=== PATIENT | female | born 1985 | race African-American/Black ===

== ENCOUNTER 2020-06-19 15:57 | Inpatient (IN) | payer OTHER ==
[2020-06-19] MEDS ORDERED: Ondansetron PF 4 MG/2 ML Vial ONE (17:12)
[2020-06-19 17:38] LABS: #Eosinphils 0.1 10x3/uL (0.0-0.5); #Monocytes 0.4 10x3/uL (0.0-1.1); %Basophils 0.5 % (0.0-2.0); %Eosinophils 1.5 % (0.0-6.0); %Lymphocytes 37.4 % (18.0-47.0); %Monocytes 10.6 % (0.0-10.0); Hemoglobin 13.2 g/dL (12.0-15.5); Mean Corpuscular HGB CONC 32.8 g/dL (32.0-36.0); Mean Corpuscular Hemoglobin 32.6 pg (27.0-33.0); Mean Corpuscular Volume 99.3 fl (81.6-98.3); Mean Platelet Volume 10.5 fl (7.4-10.4); Platelet Count 288 10x3/uL (150-450); RBC Distribution Width 11.9 % (11.5-14.5); Red Blood Cell (RBC) Count 4.05 10x6/uL (3.90-5.03)
[2020-06-19 17:50] LABS: #Neutrophils 8.3 10x3/uL (1.5-8.4)
[2020-06-19 17:51] LABS: BHCG - Serum Negative (NEGATIVE); Pregs Control Background? CLEAR/WHITE (CLR/WHITE); Pregs Control Bar Appear? YES (CONTROL BAR)
[2020-06-19 17:58] LABS: ALT (SGPT) 412 U/L (8-55); AST (SGOT) 365 U/L (5-34); Albumin 4.7 g/dL (3.5-5.0); Alkaline Phosphatase 188 U/L (40-110); Anion Gap 14 mmol/L (10-20); BUN (Urea Nitrogen) 11 mg/dL (7.0-18.7); Bilirubin, Total 1.1 mg/dL (0.2-1.2); Calc. Creatinine Clearance 0 mL/min (70-130); Calcium 9.6 mg/dL (7.8-10.44); Carbon Dioxide 25 mmol/L (22-29); Chloride 105 mmol/L (98-107); Globulin 3.3 g/dL (2.4-3.5); Glucose 96 mg/dL (70-105); Lipase 59 U/L (8-78); Potassium 3.7 mmol/L (3.5-5.1); Sodium 140 mmol/L (136-145)
[2020-06-19] MEDS ORDERED: cefTRIAXone\\ROCEPHIN 1 GM VIAL ONE (19:21)
[2020-06-19 19:27] LABS: Bilirubin Neg (Negative); Blood, Urine Negative (Negative); Glucose, Urine (Dipstick) Normal (Negative); Ketone, Urine Negative (Negative); Leukocyte 25 (Negative); Nitrite Negative (Negative); Protein, Urine (Dipstick) Negative (Neg-Trace); Specific Gravity, Urine 1.005 (1.002-1.036)
[2020-06-19 19:34] LABS: Clarity Hazy (Clear)
[2020-06-19 19:36] LABS: RBC/HPF 0-3 HPF (0-3)
[2020-06-19 19:37] LABS: Mucous/LPF 1+ LPF (<2+)
[2020-06-19 19:40] LABS: Bacteria/HPF 1+ HPF (None Seen)
[2020-06-19] MEDS ORDERED: Morphine 4 MG/ML VIAL ONE (19:51)
[2020-06-19] MEDS ORDERED: HYDROcodone/Acetaminophen 5/325 mg Tablet PO PRN (20:29)
[2020-06-19] MEDS ORDERED: Senokot S 8.6-50 MG TAB PO PRN (20:29)
[2020-06-19] MEDS ORDERED: Zolpidem Tartrate 5 MG TAB PO PRN (20:29)
[2020-06-19] MEDS ORDERED: Ondansetron PF 4 MG/2 ML Vial IVP PRN (20:29)
[2020-06-19] MEDS ORDERED: Calcium Carbonate 500 MG ChewTAB PO PRN (20:29)
[2020-06-19] MEDS ORDERED: Acetaminophen 325 MG TAB PO PRN (20:29)
[2020-06-19] MEDS ORDERED: Morphine 4 MG/ML VIAL SLOW IVP PRN (20:31)
[2020-06-19 22:41] VITALS: BMI 33.8
[2020-06-19] MEDS ORDERED: Famotidine/PF 20 mg/2ml Vial SLOW IVP SCH (22:45)
[2020-06-19] MEDS ORDERED: NS 0.9% w/ 20 MEQ KCL 1,000 ML ONE (22:49)
[2020-06-19] MEDS: NS 0.9% w/ 20 MEQ KCL 1,000 ML/1,000 ML BAG IV SCH (22:53)
[2020-06-20 05:45] LABS: ALT (SGPT) 368 U/L (8-55); AST (SGOT) 244 U/L (5-34); Alkaline Phosphatase 188 U/L (40-110); Anion Gap 11 mmol/L (10-20); BUN (Urea Nitrogen) 9 mg/dL (7.0-18.7); Bilirubin, Total 1.1 mg/dL (0.2-1.2); Calc. Creatinine Clearance 150 mL/min (70-130); Calcium 8.6 mg/dL (7.8-10.44); Carbon Dioxide 22 mmol/L (22-29); Cardiac Risk 2.9 (Less than 4.5); Chloride 109 mmol/L (98-107); Cholesterol 165 mg/dl (< 200 Desired); Globulin 2.6 g/dL (2.4-3.5); Glucose 100 mg/dL (70-105); HDL Cholesterol 57 mg/dL (>60 Neg Risk); LDL Cholesterol, Calculated 99 mg/dL; Potassium 4.3 mmol/L (3.5-5.1); Protein, Total 6.6 g/dL (6.0-8.3); Sodium 138 mmol/L (136-145); Triglycerides 47 mg/dL (Less than 150)
[2020-06-20 05:51] LABS: #Eosinphils 0.2 10x3/uL (0.0-0.5); #Monocytes 0.3 10x3/uL (0.0-1.1); #Neutrophils 1.8 10x3/uL (1.5-8.4); %Basophils 0.3 % (0.0-2.0); %Eosinophils 4.1 % (0.0-6.0); %Lymphocytes 40.4 % (18.0-47.0); %Monocytes 8.3 % (0.0-10.0); %Neutrophils 46.6 % (40.0-75.0); Hemoglobin 11.6 g/dL (12.0-15.5); Mean Corpuscular HGB CONC 32.7 g/dL (32.0-36.0); Mean Corpuscular Hemoglobin 32.5 pg (27.0-33.0); Mean Corpuscular Volume 99.4 fl (81.6-98.3); Mean Platelet Volume 11.1 fl (7.4-10.4); Platelet Count 262 10x3/uL (150-450); RBC Distribution Width 12.1 % (11.5-14.5); Red Blood Cell (RBC) Count 3.57 10x6/uL (3.90-5.03); White Blood Cell (WBC) Count 3.9 10x3/uL (3.5-10.5)
[2020-06-20 09:32] LABS: Vitamin B12 698 pg/mL (211-911)
[2020-06-20 09:39] LABS: HBCM Index 0.23 S/CO (0-0.79); HBSAg Index 0.19 S/CO (0-0.99); Hep A IgM AB Non-Reactive (NonReactive); Hep A IgM S/CO 0.15 S/CO (0-0.79); Hep B Surf Ag Non-Reactive S/CO (NonReactive); Hep C IgG Ab Non-Reactive (NonReactive); Hep C Index 0.08 S/CO (0-0.79); Hepatitis B Core IgM Abs Non-Reactive (NonReactive)
[2020-06-20] MEDS: cefTRIAXone\\ROCEPHIN 2 GM in Sodium Chloride 0.9% 100 ML IVPB SCH (11:14)
[2020-06-20] MEDS: Enoxaparin Sodium 40 MG/0.4 ML SYRINGE SC SCH (11:14)
[2020-06-20] MEDS: Famotidine/PF 20 mg/2ml Vial SLOW IVP SCH ×2 (11:15→21:56)
[2020-06-20 16:18] LABS: SARS-CoV-2 PCR by NAA Not Detected (NotDetected)
[2020-06-21] MEDS: NS 0.9% w/ 20 MEQ KCL 1,000 ML/1,000 ML BAG IV SCH (01:05)
[2020-06-21 04:26] LABS: #Eosinphils 0.2 10x3/uL (0.0-0.5); #Monocytes 0.3 10x3/uL (0.0-1.1); #Neutrophils 1.2 10x3/uL (1.5-8.4); %Basophils 0.6 % (0.0-2.0); %Eosinophils 4.2 % (0.0-6.0); %Lymphocytes 52.7 % (18.0-47.0); %Neutrophils 33.5 % (40.0-75.0); Hemoglobin 11.8 g/dL (12.0-15.5); Mean Corpuscular HGB CONC 31.8 g/dL (32.0-36.0); Mean Corpuscular Hemoglobin 31.7 pg (27.0-33.0); Mean Corpuscular Volume 99.7 fl (81.6-98.3); Mean Platelet Volume 11.3 fl (7.4-10.4); Platelet Count 246 10x3/uL (150-450); RBC Distribution Width 11.9 % (11.5-14.5); Red Blood Cell (RBC) Count 3.72 10x6/uL (3.90-5.03); White Blood Cell (WBC) Count 3.6 10x3/uL (3.5-10.5)
[2020-06-21 04:42] LABS: ALT (SGPT) 270 U/L (8-55); AST (SGOT) 103 U/L (5-34); Albumin 3.9 g/dL (3.5-5.0); Alkaline Phosphatase 181 U/L (40-110); Anion Gap 13 mmol/L (10-20); BUN (Urea Nitrogen) 6 mg/dL (7.0-18.7); Bilirubin, Total 0.8 mg/dL (0.2-1.2); Calc. Creatinine Clearance 142 mL/min (70-130); Carbon Dioxide 21 mmol/L (22-29); Chloride 107 mmol/L (98-107); Globulin 2.7 g/dL (2.4-3.5); Glucose 87 mg/dL (70-105); Potassium 4.3 mmol/L (3.5-5.1); Protein, Total 6.6 g/dL (6.0-8.3); Sodium 137 mmol/L (136-145)
[2020-06-21] MEDS: cefTRIAXone\\ROCEPHIN 2 GM in Sodium Chloride 0.9% 100 ML IVPB SCH (08:51)
[2020-06-21] MEDS: Famotidine/PF 20 mg/2ml Vial SLOW IVP SCH (08:52)
[2020-06-21] MEDS ORDERED: Fentanyl 250 MCG/5 ML VIAL ONE (11:46)
[2020-06-21] MEDS ORDERED: Ondansetron PF 4 MG/2 ML Vial ONE (11:46)
[2020-06-21] MEDS ORDERED: Midazolam HCl 2 mg/2 ml Vial ONE (11:46)
[2020-06-21] MEDS ORDERED: Rocuronium Bromide 10 MG/ML (10ML VIAL) ONE (11:46)
[2020-06-21] MEDS ORDERED: Dexamethasone 20 MG/5 ML VIAL ONE (11:46)
[2020-06-21] MEDS ORDERED: PROPOFOL 20 ML ONE (11:46)
[2020-06-21] MEDS ORDERED: Glycopyrrolate 0.2 MG/ML 5 ML SYRINGE ONE (11:46)
[2020-06-21] MEDS ORDERED: Lidocaine 1% PF 5 ML VIAL ONE (11:46)
[2020-06-21] MEDS ORDERED: EPINEPHrine 1 MG/ML AMP ONE (12:06)
[2020-06-21] MEDS ORDERED: Bupivacaine PF 0.5% 30 ML VIAL ONE (12:06)
[2020-06-21] MEDS ORDERED: Ibuprofen 600 MG TAB PO PRN (12:22)
[2020-06-21] MEDS ORDERED: Acetaminophen 500 MG TAB PO PRN (12:22)
[2020-06-21] MEDS ORDERED: traMADol HCl 50 MG TAB PO PRN (12:22)
[2020-06-21] MEDS ORDERED: Ketorolac Tromethamine 30 MG/ML VIAL ONE (12:47)
[2020-06-21] MEDS: Enoxaparin Sodium 40 MG/0.4 ML SYRINGE SC SCH (13:32)
[2020-06-21 16:58] VITALS: BP 115/76
[2020-06-21 17:02] VITALS: TEMP 98.6
== END 2020-06-21 17:59 | disposition home or self-care (01) | DRG 419 ==
LOC: CSHERS 15:57 → CSHTELE 21:28
PROVIDERS: ADMIT Student in an Organized Health Care Education/Training Program; ATTEND Family Medicine
PROC: 0FT44ZZ Resection of Gallbladder, Percutaneous Endoscopic Approach (ICD-10-PCS; principal; 2020-06-21)
DX: K80.10 Calculus of gallbladder with chronic cholecystitis without obstruction (principal); Z20.822 Contact with and (suspected) exposure to COVID-19; Z82.49 Family history of ischemic heart disease and other diseases of the circulatory system; E66.9 Obesity, unspecified; Z68.33 Body mass index [BMI] 33.0-33.9, adult; D53.9 Nutritional anemia, unspecified
CPT/HCPCS: 36415; 74177; 74181; 76705; 80053; 80061; 80074; 81003; 81015; 82607; 82746; 83690; 84703; 85025; 87635; 88304; 96365; 96375; J0171; J0696; J1100; J1650; J1885; J2250; J2270; J2405; J2704; J3010; J3480; J3490; S0020; S0028; U0003; U0005

== ENCOUNTER 2021-02-07 11:29 | Day surgery (SDC) | payer OTHER ==
[2021-02-07 12:19] VITALS: BMI 32.9
== END 2021-02-07 13:55 | disposition home health service (06) ==
LOC: CSHLD/OP 11:29
PROVIDERS: ATTEND Obstetrics & Gynecology
DX: Z04.3 Encounter for examination and observation following other accident (principal); O99.820 Streptococcus B carrier state complicating pregnancy; O24.415 Gestational diabetes mellitus in pregnancy, controlled by oral hypoglycemic drugs; O98.313 Other infections with a predominantly sexual mode of transmission complicating pregnancy, third trimester; A60.00 Herpesviral infection of urogenital system, unspecified; O09.523 Supervision of elderly multigravida, third trimester; Z3A.36 36 weeks gestation of pregnancy; Z79.82 Long term (current) use of aspirin; Z79.899 Other long term (current) drug therapy; W18.39XA Other fall on same level, initial encounter
CPT/HCPCS: 99282

== ENCOUNTER 2021-02-16 19:50 | Inpatient (IN) | payer OTHER ==
[2021-02-16] MEDS ORDERED: Ondansetron PF 4 MG/2 ML Vial IVP PRN ×2 (20:21→20:24)
[2021-02-16] MEDS ORDERED: Carboprost 250 MCG/ML AMP IM PRN (20:21)
[2021-02-16] MEDS ORDERED: Lidocaine 1% (PF) 30 ML VIAL SC PRN (20:21)
[2021-02-16] MEDS ORDERED: Methylergonovine 0.2 MG/ML VIAL IM PRN (20:21)
[2021-02-16] MEDS ORDERED: Promethazine HCl 25 MG/ML VIAL IM PRN ×2 (20:21→20:24)
[2021-02-16] MEDS ORDERED: Diphenoxylate HCl/Atropine Tablet PO PRN (20:21)
[2021-02-16] MEDS ORDERED: Ibuprofen 800 MG TAB PO PRN (20:21)
[2021-02-16] MEDS ORDERED: Misoprostol 200 MCG TAB PR PRN (20:21)
[2021-02-16] MEDS ORDERED: hydrALAZINE 20 MG/ML VIAL SLOW IVP PRN ×2 (20:21→20:24)
[2021-02-16] MEDS ORDERED: Milk Of Magnesia 30 ML UDCUP PO PRN (20:24)
[2021-02-16] MEDS ORDERED: Bisacodyl 10 MG SUPP PR PRN (20:24)
[2021-02-16] MEDS ORDERED: Boostrix 0.5 ML (Tdap) VIAL IM ONE (20:24)
[2021-02-16] MEDS ORDERED: diphenhydrAMINE 25 MG CAP PO PRN (20:24)
[2021-02-16] MEDS ORDERED: Lanolin Ointment 7 GM TUBE TOP PRN (20:24)
[2021-02-16] MEDS ORDERED: Preparation H Ointment 28 GM TUBE PR PRN (20:24)
[2021-02-16] MEDS ORDERED: NS w/ Oxytocin 30 units 500 ML IV SCH (20:30)
[2021-02-16 20:51] VITALS: BMI 33.5
[2021-02-16] MEDS ORDERED: metFORMIN 500 MG TAB PO SCH (21:00)
[2021-02-16] MEDS ORDERED: Oxytocin 10 UNITS/ML VIAL ONE (21:09)
[2021-02-16 21:34] LABS: Hemoglobin 12.3 g/dL (12.0-15.5); Mean Corpuscular HGB CONC 33.9 g/dL (32.0-36.0); Mean Corpuscular Hemoglobin 33.4 pg (27.0-33.0); Mean Corpuscular Volume 98.6 fl (81.6-98.3); Mean Platelet Volume 11.5 fl (7.4-10.4); Platelet Count 254 10x3/uL (150-450); RBC Distribution Width 12.6 % (11.5-14.5); Red Blood Cell (RBC) Count 3.68 10x6/uL (3.90-5.03); White Blood Cell (WBC) Count 10.8 10x3/uL (3.5-10.5)
[2021-02-16 21:52] LABS: ALT (SGPT) 34 U/L (8-55); AST (SGOT) 29 U/L (5-34); Albumin 3.7 g/dL (3.5-5.0); Alkaline Phosphatase 307 U/L (40-110); Anion Gap 16 mmol/L (10-20); BUN (Urea Nitrogen) 8 mg/dL (7.0-18.7); Bilirubin, Total 0.8 mg/dL (0.2-1.2); Calc. Creatinine Clearance 149 mL/min (70-130); Calcium 9.6 mg/dL (7.8-10.44); Carbon Dioxide 19 mmol/L (22-29); Chloride 103 mmol/L (98-107); Globulin 3.9 g/dL (2.4-3.5); Glucose 97 mg/dL (70-105); Protein, Total 7.6 g/dL (6.0-8.3); Sodium 134 mmol/L (136-145)
[2021-02-16 22:11] LABS: Hep B Surf Ag Non-Reactive S/CO (NonReactive)
[2021-02-16 22:12] LABS: Syphilis Antibody Nonreactive (Nonreactive); Syphilis Antibody Index 0.03 S/CO (<1.00 Non-Reactive)
[2021-02-17 02:14] LABS: SARS-CoV-2 NAA Rapid Test Not Detected (NotDetected)
[2021-02-17] MEDS: Acetaminophen 500 MG TAB PO PRN ×3 (04:40→22:23)
[2021-02-17] MEDS ORDERED: metFORMIN 500 MG TAB PO SCH (08:00)
[2021-02-17] MEDS: Lactated Ringer's 1,000 ML IV SCH ×4 (08:14→21:03)
[2021-02-17] MEDS: Ferrous Sulfate 325 MG TAB PO SCH ×2 (08:15→12:08)
[2021-02-17] MEDS: Docusate Calcium (SURFAK) 240 MG CAP PO SCH ×3 (08:28→22:23)
[2021-02-17] MEDS: Prenatal Vitamin 1 TAB PO SCH (08:28)
[2021-02-17] MEDS: metFORMIN 850 MG TAB PO SCH ×2 (12:06→16:46)
[2021-02-18] MEDS: Lactated Ringer's 1,000 ML IV SCH ×2 (00:58→12:05)
[2021-02-18] MEDS: Prenatal Vitamin 1 TAB PO SCH (08:38)
[2021-02-18] MEDS: Docusate Calcium (SURFAK) 240 MG CAP PO SCH (08:38)
[2021-02-18] MEDS: metFORMIN 850 MG TAB PO SCH ×2 (08:39→12:11)
[2021-02-18] MEDS: Ferrous Sulfate 325 MG TAB PO SCH (08:39)
[2021-02-18 09:10] VITALS: BP 116/71; TEMP 98.2
== END 2021-02-18 17:45 | disposition home or self-care (01) | DRG 806 ==
LOC: CSHLD/OP 19:50 → CSHLD 20:00 → CSHPP 02-17 00:23
PROVIDERS: ADMIT Emergency Medicine; ATTEND Emergency Medicine
PROC: 10E0XZZ Delivery of Products of Conception, External Approach (ICD-10-PCS; principal; 2021-02-16)
DX: O24.92 Unspecified diabetes mellitus in childbirth (principal); O98.82 Other maternal infectious and parasitic diseases complicating childbirth; Z20.822 Contact with and (suspected) exposure to COVID-19; Z37.0 Single live birth; O98.22 Gonorrhea complicating childbirth; A54.9 Gonococcal infection, unspecified; O14.94 Unspecified pre-eclampsia, complicating childbirth; Z3A.37 37 weeks gestation of pregnancy; B95.1 Streptococcus, group B, as the cause of diseases classified elsewhere; O70.1 Second degree perineal laceration during delivery
CPT/HCPCS: 36415; 80053; 82570; 84156; 85027; 86780; 86850; 86900; 86901; 87340; 99285; J2590; U0002

== ENCOUNTER 2024-03-14 20:13 | Day surgery (SDC) | payer OTHER ==
[2024-03-14] MEDS ORDERED: hydrALAZINE 20 MG/ML VIAL SLOW IVP PRN (20:24)
[2024-03-14 20:46] VITALS: BMI 36.9
[2024-03-14 21:48] LABS: Creatinine, Urine 59.85 mg/dL (47-110)
[2024-03-14 22:31] LABS: ALT (SGPT) 24 U/L (8-55); AST (SGOT) 26 U/L (5-34); Albumin 2.5 g/dL (3.5-5.0); Alkaline Phosphatase 329 U/L (40-110); Anion Gap 11 mmol/L (10-20); BUN (Urea Nitrogen) 6 mg/dL (7.0-18.7); Bilirubin, Total 0.5 mg/dL (0.2-1.2); Calc. Creatinine Clearance 160 mL/min (70-130); Carbon Dioxide 22 mmol/L (22-29); Chloride 109 mmol/L (98-107); Estimated GFR 114; Globulin 3.8 g/dL (2.4-3.5); Glucose 77 mg/dL (70-105); Potassium 3.7 mmol/L (3.5-5.1); Protein, Total 6.3 g/dL (6.0-8.3); Sodium 138 mmol/L (136-145)
[2024-03-14 22:39] LABS: #Basophils Less than 0.03 10x3/uL (0.0-0.2); #Eosinophils Less than 0.03 10x3/uL (0.0-0.5); #Monocytes 0.54 10x3/uL (0.0-1.1); %Basophils 0.4 % (0.0-2.0); %Eosinophils 0.4 % (0.0-6.0); %Lymphocytes 25.2 % (18.0-47.0); %Monocytes 10.2 % (0.0-10.0); %Neutrophils 62.1 % (40.0-75.0); Hematocrit 29.3 % (34.9-44.5); Hemoglobin 9.3 g/dL (12.0-15.5); Mean Corpuscular HGB CONC 31.7 g/dL (32.0-36.0); Mean Corpuscular Hemoglobin 30.9 pg (27.0-33.0); Mean Corpuscular Volume 97.3 fL (81.6-98.3); Mean Platelet Volume 11.9 fL (7.4-10.4); Platelet Count 261 10x3/uL (150-450); RBC Distribution Width 13.2 % (11.5-14.5); Red Blood Cell (RBC) Count 3.01 10x6/uL (3.90-5.03); White Blood Cell (WBC) Count 5.31 10x3/uL (3.5-10.5)
[2024-03-18 14:12] LABS: Group B Streptococcus by PCR Not Detected (NotDetected)
== END 2024-03-15 01:30 | disposition home or self-care (01) ==
LOC: CSHLD/OP 20:13
PROVIDERS: ATTEND Family Medicine
DX: O12.03 Gestational edema, third trimester (principal); O09.43 Supervision of pregnancy with grand multiparity, third trimester; O09.523 Supervision of elderly multigravida, third trimester; O24.419 Gestational diabetes mellitus in pregnancy, unspecified control; O99.213 Obesity complicating pregnancy, third trimester; E66.812 Obesity, class 2; O40.3XX2 Polyhydramnios, third trimester, fetus 2; O30.043 Twin pregnancy, dichorionic/diamniotic, third trimester; O13.3 Gestational [pregnancy-induced] hypertension without significant proteinuria, third trimester; O26.43 Herpes gestationis, third trimester; O99.013 Anemia complicating pregnancy, third trimester; D50.9 Iron deficiency anemia, unspecified; Z3A.38 38 weeks gestation of pregnancy; Z90.49 Acquired absence of other specified parts of digestive tract
CPT/HCPCS: 36415; 80053; 82570; 84156; 85025; 87653; 99285

== ENCOUNTER 2024-03-19 18:06 | Inpatient (IN) | payer OTHER ==
[2024-03-19 18:47] VITALS: BMI 38.7
[2024-03-19] MEDS: Acetaminophen 500 MG TAB PO SCH (19:21)
[2024-03-19] MEDS: Acetaminophen 500 MG TAB ONE (19:25)
[2024-03-19 20:00] LABS: #Basophils Less than 0.03 10x3/uL (0.0-0.2); #Eosinophils Less than 0.03 10x3/uL (0.0-0.5); #Monocytes 0.45 10x3/uL (0.0-1.1); #Neutrophils 3.31 10x3/uL (1.5-8.4); %Basophils 0.2 % (0.0-2.0); %Eosinophils 0.4 % (0.0-6.0); %Lymphocytes 24.8 % (18.0-47.0); %Monocytes 8.9 % (0.0-10.0); %Neutrophils 65.1 % (40.0-75.0); Hematocrit 30.1 % (34.9-44.5); Hemoglobin 9.6 g/dL (12.0-15.5); Mean Corpuscular HGB CONC 31.9 g/dL (32.0-36.0); Mean Corpuscular Hemoglobin 30.9 pg (27.0-33.0); Mean Corpuscular Volume 96.8 fL (81.6-98.3); Mean Platelet Volume 12.7 fL (7.4-10.4); Platelet Count 223 10x3/uL (150-450); RBC Distribution Width 13.5 % (11.5-14.5); Red Blood Cell (RBC) Count 3.11 10x6/uL (3.90-5.03); White Blood Cell (WBC) Count 5.08 10x3/uL (3.5-10.5)
[2024-03-19 20:11] LABS: ALT (SGPT) 20 U/L (Less than 34); AST (SGOT) 28 U/L (11-34); Albumin 2.5 g/dL (3.1-4.5); Alkaline Phosphatase 310 U/L (40-110); Anion Gap 14 mmol/L (10-20); BUN (Urea Nitrogen) 6 mg/dL (7.0-18.7); Bilirubin, Total 0.6 mg/dL (0.3-1.2); Calc. Creatinine Clearance 168 mL/min (70-130); Calcium 8.3 mg/dL (7.8-10.44); Carbon Dioxide 19 mmol/L (22-29); Chloride 109 mmol/L (98-107); Estimated GFR 114; Globulin 3.5 g/dL (2.4-3.5); Glucose 102 mg/dL (70-105); Potassium 3.9 mmol/L (3.5-5.1); Sodium 138 mmol/L (136-145)
[2024-03-19 20:38] LABS: Creatinine, Urine 54.28 mg/dL (16.00-327.00)
[2024-03-19] MEDS ORDERED: Promethazine HCl 25 MG/ML VIAL IM PRN (22:42)
[2024-03-19] MEDS ORDERED: Ondansetron PF 4 MG/2 ML Vial IVP PRN (22:42)
[2024-03-19] MEDS ORDERED: hydrALAZINE 20 MG/ML VIAL SLOW IVP PRN (22:42)
[2024-03-20] MEDS: hydrOXYzine 25 MG TAB PO SCH (01:16)
[2024-03-20] MEDS: Melatonin 3 MG TAB PO SCH (01:16)
[2024-03-20 05:35] LABS: #Basophils 0.03 10x3/uL (0.0-0.2); #Eosinophils 0.03 10x3/uL (0.0-0.5); #Neutrophils 2.46 10x3/uL (1.5-8.4); %Basophils 0.7 % (0.0-2.0); %Eosinophils 0.7 % (0.0-6.0); %Lymphocytes 29.3 % (18.0-47.0); %Monocytes 11.5 % (0.0-10.0); %Neutrophils 56.9 % (40.0-75.0); Hematocrit 26.6 % (34.9-44.5); Hemoglobin 8.5 g/dL (12.0-15.5); Mean Corpuscular Hemoglobin 31.1 pg (27.0-33.0); Mean Corpuscular Volume 97.4 fL (81.6-98.3); Mean Platelet Volume 12.2 fL (7.4-10.4); Platelet Count 215 10x3/uL (150-450); RBC Distribution Width 13.5 % (11.5-14.5); Red Blood Cell (RBC) Count 2.73 10x6/uL (3.90-5.03); White Blood Cell (WBC) Count 4.33 10x3/uL (3.5-10.5)
[2024-03-20 05:48] LABS: ALT (SGPT) 22 U/L (Less than 34); AST (SGOT) 32 U/L (11-34); Albumin 2.2 g/dL (3.1-4.5); Alkaline Phosphatase 310 U/L (40-110); Anion Gap 10 mmol/L (10-20); BUN (Urea Nitrogen) 6 mg/dL (7.0-18.7); Bilirubin, Total 0.6 mg/dL (0.3-1.2); Calc. Creatinine Clearance 187 mL/min (70-130); Calcium 7.9 mg/dL (7.8-10.44); Carbon Dioxide 20 mmol/L (22-29); Chloride 110 mmol/L (98-107); Estimated GFR 117; Globulin 3.4 g/dL (2.4-3.5); Glucose 94 mg/dL (70-105); Potassium 3.8 mmol/L (3.5-5.1); Protein, Total 5.6 g/dL (6.0-8.3); Sodium 136 mmol/L (136-145)
[2024-03-20] MEDS: Acetaminophen 500 MG TAB PO SCH (17:56)
[2024-03-20] MEDS: Iron Sucrose Complex 500 MG in Sodium Chloride 0.9% 250 ML 250 ML IVPB SCH (18:45)
[2024-03-20] MEDS ORDERED: Melatonin 3 MG TAB PO PRN (23:39)
[2024-03-20] MEDS ORDERED: hydrOXYzine 25 MG TAB PO PRN (23:39)
[2024-03-21] MEDS: Melatonin 3 MG TAB PO SCH (00:04)
[2024-03-21] MEDS: hydrOXYzine 25 MG TAB PO SCH (00:04)
[2024-03-21 08:45] LABS: #Basophils Less than 0.03 10x3/uL (0.0-0.2); #Eosinophils 0.03 10x3/uL (0.0-0.5); #Monocytes 0.58 10x3/uL (0.0-1.1); %Basophils 0.4 % (0.0-2.0); %Eosinophils 0.6 % (0.0-6.0); %Lymphocytes 23.9 % (18.0-47.0); %Monocytes 11.1 % (0.0-10.0); %Neutrophils 62.9 % (40.0-75.0); Hematocrit 30.8 % (34.9-44.5); Hemoglobin 9.9 g/dL (12.0-15.5); Mean Corpuscular HGB CONC 32.1 g/dL (32.0-36.0); Mean Corpuscular Hemoglobin 30.8 pg (27.0-33.0); Mean Platelet Volume 12.2 fL (7.4-10.4); Platelet Count 222 10x3/uL (150-450); RBC Distribution Width 13.5 % (11.5-14.5); Red Blood Cell (RBC) Count 3.21 10x6/uL (3.90-5.03); White Blood Cell (WBC) Count 5.24 10x3/uL (3.5-10.5)
[2024-03-21 09:00] LABS: ALT (SGPT) 28 U/L (Less than 34); AST (SGOT) 34 U/L (11-34); Albumin 2.5 g/dL (3.1-4.5); Alkaline Phosphatase 350 U/L (40-110); Anion Gap 11 mmol/L (10-20); BUN (Urea Nitrogen) 7 mg/dL (7.0-18.7); Bilirubin, Total 0.6 mg/dL (0.3-1.2); Calc. Creatinine Clearance 187 mL/min (70-130); Calcium 8.5 mg/dL (7.8-10.44); Carbon Dioxide 22 mmol/L (22-29); Chloride 106 mmol/L (98-107); Estimated GFR 117; Globulin 3.9 g/dL (2.4-3.5); Glucose 87 mg/dL (70-105); Potassium 3.9 mmol/L (3.5-5.1); Protein, Total 6.4 g/dL (6.0-8.3); Sodium 135 mmol/L (136-145)
[2024-03-21 12:04] VITALS: TEMP 98.4
[2024-03-21] MEDS: Acetaminophen 500 MG TAB PO SCH (13:42)
[2024-03-21 15:48] VITALS: BP 140/78
== END 2024-03-21 15:48 | disposition home or self-care (01) | DRG 833 ==
LOC: CSHLD/OP 18:06 → INTOOBSV 22:11 → CSHLD 22:11 → CSHANTE 23:10 → OBSVTOIN 03-21 11:22
PROVIDERS: ADMIT Student in an Organized Health Care Education/Training Program; ATTEND Student in an Organized Health Care Education/Training Program
DX: O14.03 Mild to moderate pre-eclampsia, third trimester (principal); O30.043 Twin pregnancy, dichorionic/diamniotic, third trimester; O99.213 Obesity complicating pregnancy, third trimester; E66.812 Obesity, class 2; Z3A.35 35 weeks gestation of pregnancy; O24.410 Gestational diabetes mellitus in pregnancy, diet controlled; O99.013 Anemia complicating pregnancy, third trimester; D50.9 Iron deficiency anemia, unspecified
CPT/HCPCS: 36415; 36416; 59025; 76819; 80053; 82570; 84156; 85025; J1756; J7050